=== PATIENT | male | born 1995 | race African-American/Black ===

== ENCOUNTER 2018-07-08 18:57 | Emergency (ER) | payer OTHER ==
[~2018-07-08] VITALS: Ht 193 cm; Wt 137.0 kg
[2018-07-08] MEDS ORDERED: BP MEDICATION (19:06)
[2018-07-08 19:10] LABS: URINE BILIRUBIN NEGATIVE (Negative); URINE BLOOD 2+ (Negative); URINE CLARITY CLEAR; URINE COLOR YELLOW; URINE GLUCOSE-RANDOM NEGATIVE (Negative); URINE KETONES NEGATIVE (Negative); URINE LEUKOCYTES-REFLEX NEGATIVE (Negative); URINE NITRITE-REFLEX NEGATIVE (Negative); URINE PROTEIN TRACE (Negative); URINE SPECIFIC GRAVITY >= 1.030 (1.005-1.030); URINE UROBILINOGEN 0.2 E.U./dl (0.2-1.0)
[2018-07-08 19:18] LABS: BACTERIA-REFLEX None Seen /HPF (None Seen); MUCUS None Seen strn/LPF (None Seen); SQUAMOUS 4-10 Moderate /LPF (0-3); URINE RBC 0-2 Rare /HPF (0-2); URINE WBC-REFLEX 0-5 Rare /HPF (0-5)
[2018-07-08 19:21] LABS: ABSOLUTE EOSINOPHILS 0.1 thou/uL (0.0-0.7); ABSOLUTE LYMPHOCYTES 1.9 thou/uL (0.8-5.3); ABSOLUTE MONOCYTES 0.3 thou/uL (0.0-1.2); ABSOLUTE NEUTROPHILS 2.1 thou/uL (1.6-8.1); BASOPHILS 0.3 %; EOSINOPHILS 2.1 %; HEMATOCRIT 45.8 % (42.0-52.0); HEMOGLOBIN 15.1 gm/dL (14.0-18.0); LYMPHOCYTES 42.6 %; MCH 25.2 pg (26.0-34.0); MCHC 33.1 g/dL (28.0-37.0); MCV 76.3 fL (80.0-100.0); MONOCYTES 7.7 %; MPV 8.5 fl. (7.2-11.1); NUCLEATED RBCS 0 /100WBC; PLATELET COUNT* 254 thou/uL (150-400); POLYS 47.3 %; WBC 4.5 thou/uL (4.0-11.0)
[2018-07-08 19:29] LABS: CALCIUM 9.8 mg/dL (8.5-10.1); CREATININE 1.1 mg/dL (0.6-1.3); POTASSIUM 3.5 mmol/L (3.5-5.1)
[2018-07-08 19:34] LABS: ALBUMIN 4.9 g/dL (3.4-5.0); TOTAL BILIRUBIN 0.7 mg/dL (<0.1-1.0); TOTAL PROTEIN 9.2 g/dL (6.4-8.2)
[2018-07-08] MEDS ORDERED: BENTYL 20 MG TA20 M1 PO (20:24)
[2018-07-08 20:34] VITALS: BP 146/86
== END 2018-07-08 20:36 | disposition home or self-care (01) ==
LOC: M.ERS 18:57
PROVIDERS: Nurse Practitioner Family
DX: K52.9 Noninfective gastroenteritis and colitis, unspecified (principal); R31.9 Hematuria, unspecified; Z90.49 Acquired absence of other specified parts of digestive tract

== ENCOUNTER 2018-10-28 20:12 | Emergency (ER) | payer OTHER ==
[~2018-10-28] VITALS: Ht 193 cm; Wt 127.0 kg
[~2018-10-28 20:12] MED LIST: BENTYL 20 MG TA20 M1 PO; BP MEDICATION
[2018-10-28] MEDS ORDERED: METOPROLOL ER-1 EAC1 PO (20:25)
[2018-10-28] MEDS ORDERED: MAXZIDE-25 MG1 EACH PO (20:26)
[2018-10-28] MEDS ORDERED: PREDNISONE 10 M10 MG PO (22:12)
[2018-10-28] MEDS ORDERED: COLCHICINE0.6 MG PO (22:12)
[2018-10-28] MEDS ORDERED: NORCO 5-325 TA1 EACH PO (22:12)
[2018-10-28 22:20] VITALS: BP 150/75
== END 2018-10-28 22:21 | disposition home or self-care (01) ==
LOC: M.ERS 20:12
DX: M25.571 Pain in right ankle and joints of right foot (principal); I10 Essential (primary) hypertension; Z90.49 Acquired absence of other specified parts of digestive tract

== ENCOUNTER 2020-01-07 14:08 | Emergency (ER) | payer OTHER ==
[~2020-01-07] VITALS: Ht 190.5 cm; Wt 95.3 kg
[~2020-01-07 14:08] MED LIST changes: +COLCHICINE0.6 MG PO; +MAXZIDE-25 MG1 EACH PO; +METOPROLOL ER-1 EAC1 PO; +NORCO 5-325 TA1 EACH PO; +PREDNISONE 10 M10 MG PO
[2020-01-07] MEDS ORDERED: TRUVADA1 EAC1 PO (14:20)
[2020-01-07] MEDS ORDERED: PREDNISONE 10 M10 M1 PO (14:27)
[2020-01-07] MEDS ORDERED: DIPHENHIST50 MG PO (14:27)
[2020-01-07 14:43] VITALS: BP 147/101
== END 2020-01-07 14:44 | disposition home or self-care (01) ==
LOC: M.ERS 14:08
DX: L50.9 Urticaria, unspecified (principal); T40.2X5A Adverse effect of other opioids, initial encounter; I10 Essential (primary) hypertension; Z90.49 Acquired absence of other specified parts of digestive tract; Y92.89 Other specified places as the place of occurrence of the external cause